=== PATIENT | female | born 1975 | race Caucasian/White ===

== ENCOUNTER 2018-10-19 12:26 | Emergency (ER) | payer OTHER ==
[~2018-10-19] VITALS: Ht 157.5 cm; Wt 55.0 kg
[2018-10-19] MEDS ORDERED: BUPR-86 PO (12:31)
--- NOTE | 2018-10-19 12:43 | NUR ---
PT BIB [facility] FROM [facility] FOR XR TO RIGHT 5TH FINGER FOLLOWING GLF TODAY DUE TO NEW ONSET SEIZURES X2 TODAY. SILVIO PRESENT. VSS. WILL TRANSFER TO CORE ROOM.
--- NOTE | 2018-10-19 13:15 | NUR ---
REPORT FROM WALLACE MCCONNELL, ASSUME CARE OF PT AT THIS TIME.
[2018-10-19] MEDS ORDERED: HYDROcodone/APAP 5/325 TABLET PO ONE (13:30)
[2018-10-19] MEDS ORDERED: HYDROcodone/APAP 5/325 TABLET ONE (14:36)
--- NOTE | 2018-10-19 14:49 | NUR ---
CALL TO CT TO INQUIRE ON DELAY FOR EXAM.
[2018-10-19 14:52] VITALS: BP 117/69
--- NOTE | 2018-10-19 14:53 | NUR ---
PT TO CT
--- NOTE | 2018-10-19 15:07 | NUR ---
CALL TO LAB TO INQUIRE ON DELAY.
[2018-10-19 15:32] LABS: BASOPHILS # (AUTO) 0.03 x10^3/uL (0-0.1); BASOPHILS % (AUTO) 0 % (0-1); EOSINOPHILS # (AUTO) 0.04 x10^3/uL (0-0.4); EOSINOPHILS % (AUTO) 0 % (1-7); LYMPHOCYTES # (AUTO) 1.59 x10^3/uL (1-3.4); LYMPHOCYTES % (AUTO) 12 % (22-44); MD NO; MEAN CORPUSCULAR HEMOGLOBIN 30.9 pg (27.0-34.8); MEAN CORPUSCULAR HGB CONC 33.9 g/dL (32.4-35.8); MEAN PLATELET VOLUME 8.3 fL (7.4-10.4); MONOCYTES # (AUTO) 0.68 x10^3/uL (0.2-0.8); MONOCYTES % (AUTO) 5 % (2-9); NEUTROPHILS # (AUTO) 11.12 x10^3/uL (1.8-6.8); NEUTROPHILS % (AUTO) 83 % (42-75); PLATELET COUNT 326 x10^3/uL (130-400); RED BLOOD COUNT 4.44 x10^6/uL (3.82-5.3); RED CELL DISTRIBUTION WIDTH 13.7 % (9.6-15.2)
[2018-10-19 15:42] LABS: ANION GAP 7 mmol/L (5-15); CHLORIDE 107 mmol/L (98-107)
[2018-10-19 15:47] LABS: ALANINE AMINOTRANSFERASE 34 U/L (12-78); ALKALINE PHOSPHATASE 69 U/L (45-117); BILIRUBIN,TOTAL 0.8 mg/dL (0.2-1.0); CREATININE 0.85 mg/dL (0.55-1.02); TOTAL PROTEIN 7.3 g/dL (6.4-8.2)
== END 2018-10-19 16:47 | disposition home or self-care (01) ==
LOC: EDSEX 13:30 → ED 13:30
DX: S62.646A Nondisplaced fracture of proximal phalanx of right little finger, initial encounter for closed fracture (principal); R56.9 Unspecified convulsions; X58.XXXA Exposure to other specified factors, initial encounter; Y93.89 Activity, other specified; Y92.89 Other specified places as the place of occurrence of the external cause; Y99.8 Other external cause status
CPT/HCPCS: 36415; 70450; 80053; 80307; 85025; 93005; 99284